=== PATIENT | male | born 1985 | race Caucasian/White ===

== ENCOUNTER 2025-03-27 22:53 | Emergency (ER) | payer SELFPAY ==
[~2025-03-27] VITALS: Ht 172.7 cm; Wt 129.6 kg
[2025-03-27 23:30] VITALS: TEMP 97.3
[2025-03-27 23:43] LABS: APPEARANCE,URINE CLEAR (CLEAR); GLUCOSE, URINE (UA) NEGATIVE (NEGATIVE); LEUKOCYTE ESTERASE ,URINE NEGATIVE (NEGATIVE); NITRATE,URINE NEGATIVE (NEGATIVE); OCCULT BLOOD,URINE NEGATIVE (NEGATIVE); PH,URINE DRUG SCREEN 7.0 (5.0-8.0); SPECIFIC GRAVITIY, URINE 1.025 (1.003-1.030)
[2025-03-27 23:50] LABS: ALCOHOL, URINE DRUG SCREEN NEGATIVE (NEGATIVE); AMPHET/METH SCREEN,URINE NEGATIVE (NEGATIVE); BARBITURATE SCREEN, URINE NEGATIVE (NEGATIVE); CANNABINOID SCREEN,URINE NEGATIVE (NEGATIVE); COCAINE SCREEN,URINE NEGATIVE (NEGATIVE); METHADONE SCREEN, URINE NEGATIVE (NEGATIVE)
[2025-03-27 23:58] LABS: CALCIUM, TOTAL 8.8 mg/dL (8.8-10.5); CREATININE 0.68 mg/dL (0.60-1.30); GLOMERULAR FILTR. RATE CALC > 60 mL/min (>60); GLUCOSE,RANDOM 119 mg/dL (70-110); PLATELET COUNT (AUTO) 250 K/uL (150-450); RED BLOOD CELL COUNT(AUTO) 4.89 MIL/uL (4.50-5.90); RED CELL DISTRIBUTION WIDTH 15.2 % (11.5-14.5); SODIUM SERUM 133 mmol/L (136-145); UREA NITROGEN, BLOOD 9 mg/dL (7-18); WHITE BLOOD COUNT (AUTO) 8.3 K/uL (4.5-11.0)
[2025-03-28] MEDS: PB/HYOSCY/ATR/SCOP/LIDO/MAALOX 55 ML BOTTLE PO ONE (00:09)
[2025-03-28 00:18] LABS: COVID AG,FIA SOURCE NASAL SWAB
[2025-03-28 00:43] LABS: SARS-COV2 (COVID) ANTIGEN,FIA Negative (Negative)
[2025-03-28] MEDS: POTASSIUM CHLORIDE 20 MEQ ER TABLET PO ONE (01:13)
[2025-03-28 01:48] VITALS: BP 133/84; PULSE 88; RESP 17; O2SAT 98
[2025-03-28] MEDS ORDERED: ZOLPIDEM TARTRATE 10 MG TABLET PO PRN (02:45)
== END 2025-03-28 02:01 | disposition admitted as inpatient to this hospital (09) ==
LOC: EMS 22:56
DX: F25.9 Schizoaffective disorder, unspecified (principal); R10.13 Epigastric pain; F17.210 Nicotine dependence, cigarettes, uncomplicated; Z20.822 Contact with and (suspected) exposure to COVID-19
CPT/HCPCS: 99285; 87426; 80048; 81003; 85025; 36415; 93005; 80307; G0480

== ENCOUNTER 2025-03-28 02:51 | Inpatient (IN) | payer BC ==
[~2025-03-28] VITALS: Ht 170.2 cm; Wt 107.2 kg
[2025-03-28] MEDS ORDERED: ZOLPIDEM TARTRATE 10 MG TABLET PO PRN (03:00)
[2025-03-28 04:15] VITALS: PULSE 86; RESP 18; TEMP 98.1; O2SAT 98
[2025-03-28 06:53] VITALS: BP 143/80
[2025-03-28] MEDS ORDERED: LOPERAMIDE HCL 2 MG CAPSULE PO PRN (07:15)
[2025-03-28] MEDS ORDERED: ALBUTEROL SULFATE HFA 90 MCG/PUFF 8 GM INHALER IH PRN (07:15)
[2025-03-28] MEDS ORDERED: PETROLATUM,WHITE 28 GM JELLY TP PRN (07:15)
[2025-03-28] MEDS ORDERED: DOCUSATE SODIUM 100 MG CAPSULE PO PRN (07:15)
[2025-03-28 08:07] VITALS: BP 136/97; PULSE 76; RESP 18; TEMP 97.3; O2SAT 99
[2025-03-28] MEDS: MAGNESIUM HYDROXIDE SUSPENSION 30 ML UDCUP PO PRN (09:21)
[2025-03-28] MEDS: BuPROPion HCL XL 150 MG ER TABLET PO SCH (12:29)
[2025-03-28] MEDS: IBUPROFEN 400 MG TABLET PO PRN (13:56)
[2025-03-28 20:10] VITALS: BP 130/89; PULSE 89; RESP 18; TEMP 97.7; O2SAT 99
[2025-03-29 08:19] LABS: CHOL/HDL RATIO 2.9 (4.2-7.3); LDL CHOL (CALC.) 46.0 mg/dL (0-130)
[2025-03-29 08:29] VITALS: BP 129/75; PULSE 86; RESP 18; TEMP 97.7; O2SAT 98
[2025-03-29 20:08] VITALS: BP 130/85; PULSE 69; RESP 18; TEMP 98.3; O2SAT 100
[2025-03-29 23:37] VITALS: BP 135/94; PULSE 112; RESP 18; TEMP 98.6; O2SAT 97
[2025-03-29] MEDS: ACETAMINOPHEN 325 MG TABLET PO PRN (23:37)
[2025-03-30 00:37] VITALS: RESP 17
[2025-03-30 08:03] VITALS: BP 119/95; PULSE 92; RESP 17; TEMP 98.1; O2SAT 98
[2025-03-30] MEDS: GuaiFENesin/D-METHORPHAN [SUGAR-FREE] 200-20MG/10 ML SYRUP UDCUP PO PRN (13:07)
[2025-03-30] MEDS: RisperiDONE ER SUSPENSION 200 MG/0.56 ML PRE-FILLED SYRINGE SQ ONE (15:50)
[2025-03-30 18:39] VITALS: RESP 18
[2025-03-30 19:38] VITALS: RESP 18
[2025-03-30 20:12] VITALS: BP 132/94; PULSE 83; RESP 18; TEMP 98.4; O2SAT 99
[2025-03-31 08:04] VITALS: BP 131/88; PULSE 79; RESP 17; TEMP 98.3; O2SAT 98
[2025-03-31] MEDS: MAG HYDROX/ALUMINUM HYD/SIMETH ES 30 ML SUSPENSION UDCUP PO PRN (08:06)
[2025-03-31] MEDS: NICOTINE 14 MG/24 HOUR PATCH TD PRN (16:49)
[2025-03-31 20:13] VITALS: BP 131/79; PULSE 76; RESP 18; TEMP 98.1; O2SAT 100
[2025-04-01 03:40] VITALS: RESP 18
[2025-04-01] MEDS: ONDANSETRON 4 MG TABLET PO PRN (06:18)
[2025-04-01 08:41] VITALS: BP 143/86; PULSE 85; RESP 17; TEMP 98.3; O2SAT 98
[2025-04-01 18:20] VITALS: RESP 18
[2025-04-01 19:21] VITALS: RESP 18
[2025-04-01 20:46] VITALS: BP 121/81; PULSE 74; RESP 18; TEMP 97.6; O2SAT 97
[2025-04-02 04:26] VITALS: RESP 18
[2025-04-02 08:38] VITALS: BP 126/86; PULSE 81; RESP 17; TEMP 98.5; O2SAT 96
[2025-04-02 20:43] VITALS: BP 106/73; PULSE 89; RESP 18; TEMP 97.7; O2SAT 99
[2025-04-03 08:32] VITALS: BP 144/89; PULSE 100; RESP 19; TEMP 97.3; O2SAT 99
[2025-04-03 20:15] VITALS: BP 113/69; PULSE 76; RESP 18; TEMP 98.4; O2SAT 98
[2025-04-04 09:45] VITALS: BP 121/84; PULSE 91; RESP 16; TEMP 97.9; O2SAT 99
[2025-04-04 20:23] VITALS: BP 125/67; PULSE 71; RESP 17; TEMP 97.8; O2SAT 97
[2025-04-05 08:32] VITALS: BP 138/96; PULSE 92; RESP 17; TEMP 97.5; O2SAT 97
[2025-04-05 20:13] VITALS: BP 123/81; PULSE 78; RESP 18; TEMP 98.1; O2SAT 97
[2025-04-06 08:23] VITALS: BP 109/78; PULSE 86; RESP 18; TEMP 97.3; O2SAT 96
[2025-04-06] MEDS ORDERED: BUPR-49 PO (10:44)
[2025-04-06] MEDS ORDERED: [UNRECOGNIZED DRUG - CODE] SQ (10:44)
[2025-04-06 20:08] VITALS: BP 133/96; PULSE 95; RESP 18; TEMP 97.5; O2SAT 98
[2025-04-06] MEDS: BACITRACIN 28 GM OINTMENT TP SCH (21:38)
[2025-04-07 08:48] VITALS: BP 126/90; PULSE 75; RESP 16; TEMP 98.4; O2SAT 96
[2025-04-07 08:50] VITALS: RESP 18
[2025-04-07 08:53] VITALS: BP 126/90; PULSE 75; RESP 16; TEMP 98.4; O2SAT 96
[2025-05-29] MEDS ORDERED: RisperiDONE ER SUSPENSION 200 MG/0.56 ML PRE-FILLED SYRINGE SQ SCH (09:00)
== END 2025-04-07 11:45 | DRG 885 ==
LOC: B2S 03:02 → B2X 03-29 08:53 → B2S 03-31 16:06
PROVIDERS: ADMIT Psychiatry & Neurology Psychiatry; ATTEND Psychiatry & Neurology Psychiatry
PROC: GZHZZZZ Group Psychotherapy (ICD-10-PCS; principal; 2025-03-28)
PROC: GZ52ZZZ Individual Psychotherapy, Cognitive (ICD-10-PCS; 2025-04-07)
DX: F25.1 Schizoaffective disorder, depressive type (principal); E87.1 Hypo-osmolality and hyponatremia; R45.851 Suicidal ideations; F43.12 Post-traumatic stress disorder, chronic; F12.20 Cannabis dependence, uncomplicated; E87.6 Hypokalemia; E66.01 Morbid (severe) obesity due to excess calories; G89.29 Other chronic pain; Z68.37 Body mass index [BMI] 37.0-37.9, adult; Z79.899 Other long term (current) drug therapy; Z91.51 Personal history of suicidal behavior
CPT/HCPCS: 80061; 83036; 84132; 84443; Q0162